=== PATIENT | male | born 1965 | race Caucasian/White ===

== ENCOUNTER → 2019-04-28 | Outpatient (CLI) | payer MEDICAID ==
[2019-04-28 14:24] LABS: HEMATOCRIT 43.2 % (42.0-52.0); HEMOGLOBIN 14.6 g/dl (13.5-17.5); MEAN CORPUSCULAR HEMOGLOBIN 31.2 pg (27.0-33.0); MEAN CORPUSCULAR HGB CONC 33.8 g/dl (32.0-36.5); MEAN CORPUSCULAR VOLUME 92.3 fl (80.0-96.0); PLATELET COUNT, AUTOMATED 255 10^3/uL (150-450); RED BLOOD COUNT 4.68 10^6/uL (4.30-6.10); WHITE BLOOD COUNT 4.8 10^3/uL (4.0-10.0)
[2019-04-28 14:43] LABS: TOTAL PROTEIN 7.7 GM/DL (6.4-8.2)
[2019-04-28 15:00] LABS: ERYTHROCYTE SEDIMENTATION RATE 2 mm/hr (0-20)
--- NOTE | 2019-04-28 18:46 | REP ---
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 Findings: Normal triphasic arterial wave forms are seen throughout the over the arteries bilaterally. No atherosclerotic disease. No evidence of stenosis seen. Velocity chart right upper extremity: Proximal subclavian artery 90 cm/S Distal subclavian 59 Axillary 65 Proximal brachial 63 Mid brachial 72 Distal brachial 72 Proximal ulnar 48 Mid ulnar 38 Distal ulnar 50 Proximal radial 35 Mid radial 42 Distal radial 36 Velocity chart left upper extremity: Proximal subclavian 126 cm/S Distal subclavian 100 Axillary 64 Brachial proximal 82 Mid brachial 76 Distal brachial 81 Proximal ulnar 43 Mid ulnar 33 Distal ulnar 58 Proximal radial 45 Mid radial 54 Distal radial 66 Electronically Signed by Jose Guadalupe Cardenas MD 04/28/2019 06:38 P
[2019-04-29 14:16] LABS: ANTINUCLEAR ANTIBODIES DIRECT Negative (Negative)
[2019-05-02 11:48] LABS: ALBUMIN % 64.7 % (55.8-66.1)
[2019-05-02 11:49] LABS: ALBUMIN 4.98 GM/DL (3.29-5.55); ALPHA-1-GLOBULIN % 3.7 % (2.9-4.9); ALPHA-1-GLOBULINS 0.28 GM/DL (0.17-0.41); ALPHA-2-GLOBULINS 0.58 GM/DL (0.42-0.99); ALPHA-2-GLOBULINS % 7.5 % (7.1-11.8); BETA-1-GLOBULINS 0.44 GM/DL (0.28-0.60); BETA-1-GLOBULINS % 5.7 % (4.7-7.2); BETA-2-GLOBULINS 0.41 GM/DL (0.19-0.55); BETA-2-GLOBULINS % 5.3 % (3.2-6.5); GAMMA GLOBULIN % 13.1 % (11.1-18.8); GAMMA GLOBULINS 1.01 GM/DL (0.65-1.58)
== END ==
LOC: M RAD 13:53
PROVIDERS: ATTEND Physician Assistant
DX: I73.00 Raynaud's syndrome without gangrene (principal)